=== PATIENT | male | born 1955 | race African-American/Black ===

== ENCOUNTER 2018-10-19 11:02 | Inpatient (IN) | payer MEDICAID ==
[~2018-10-19] VITALS: Ht 172.7 cm; Wt 93.4 kg
[2018-10-19 12:00] LABS: BASOPHILS % 0.5 % (0.0-2.0); EOSINOPHILS % 0.6 % (0.0-5.0); HEMATOCRIT. 42.5 % (42.0-52.0); HEMOGLOBIN. 14.7 g/dL (14.0-18.0); LYMPHOCYTES % 45.3 % (20.0-50.0); MEAN CORPUSCULAR HEMOGLOBIN 29.6 pg (28.0-32.0); MEAN CORPUSCULAR VOLUME 85.5 fL (80.0-94.0); MEAN PLATELET VOLUME 9.6 fl (7.4-10.4); MONOCYTES % 10.7 % (2.0-8.0); NEUTROPHILS % 42.9 % (40.0-76.0); PLATELET 194 x1000/uL (130-400); RED BLOOD CELL COUNT 4.97 mill/uL (4.7-6.1); RED CELL DISTRIBUTION WIDTH 14.7 % (11.6-14.6)
[2018-10-19 12:06] LABS: CHLORIDE 102 mEq/L (98-107)
[2018-10-19 12:12] LABS: ETHANOL BLOOD < 10 mg/dL
[2018-10-19] MEDS ORDERED: CLONIDINE 0.1MG TABLET PO ONE (13:15)
[2018-10-19 16:26] LABS: CLARITY URINE CLEAR (CLEAR); COLOR URINE YELLOW (YELLOW); KETONES URINE NEGATIVE (NEGATIVE); LEUKOCYTE ESTERASE URINE NEGATIVE (NEGATIVE); NITRITE URINE NEGATIVE (NEGATIVE); OCCULT BLOOD URINE NEGATIVE (NEGATIVE); PH URINE 6.5 (4.5-8.0); PROTEIN URINE 2+ (NEGATIVE); SPECIFIC GRAVITY URINE 1.019 (1.005-1.030)
[2018-10-19 16:41] LABS: *AMPHETAMINES SCREEN URINE NEGATIVE (NEGATIVE); *BARBITURATES SCREEN URINE NEGATIVE (NEGATIVE); *BENZODIAZEPINES SCREEN URINE NEGATIVE (NEGATIVE); *COCAINE SCREEN URINE NEGATIVE (NEGATIVE); CANNABINOID URINE SCREEN NEGATIVE (NEGATIVE); METHADONE URINE SCREEN NEGATIVE (NEGATIVE); OPIATES URINE SCREEN NEGATIVE (NEGATIVE); PHENCYCLIDINE URINE SCREEN NEGATIVE (NEGATIVE)
[2018-10-19] MEDS ORDERED: METF-416 PO (21:16)
[2018-10-19] MEDS ORDERED: GLIP10TA10 PO (21:17)
[2018-10-19] MEDS ORDERED: METO25TA6 PO (21:18)
[2018-10-19] MEDS ORDERED: CLON0.1T PO (21:19)
[2018-10-19] MEDS ORDERED: HYDR25TA PO (21:20)
[2018-10-19] MEDS ORDERED: LOSA100T14 PO (21:21)
[2018-10-19] MEDS ORDERED: ATOR40TA70 PO (21:21)
[2018-10-19] MEDS ORDERED: HYDR-4135 PO (21:22)
[2018-10-19 22:00] VITALS: BP 195/111
[2018-10-19 22:15] VITALS: BP 195/111
[2018-10-20] VITALS (10 sets, daily range): BP systolic 159–193; BP diastolic 94–115
[2018-10-20] MEDS ORDERED: ONDANSETRON HCL 4MG/2ML INJ IV PRN (02:30)
[2018-10-20] MEDS ORDERED: ACETAMINOPHEN 325MG TABLET PO PRN (02:30)
[2018-10-20] MEDS ORDERED: DOCUSATE SODIUM 100MG CAPSULE PO PRN (02:30)
[2018-10-20] MEDS ORDERED: MAGNESIUM/ALUMINUM HYDROXIDE/SIMETHICONE 30ML UDC PO PRN (02:30)
[2018-10-20] MEDS ORDERED: IPRATROPIUM/ALBUTEROL 0.5-3(2.5)MG/3ML NEB INH PRN (02:30)
[2018-10-20] MEDS ORDERED: HYDROCODONE/ACETAMINOPHEN 5/325MG TABLET PO PRN (02:30)
[2018-10-20 07:14] LABS: BASOPHILS % 0.5 % (0.0-2.0); EOSINOPHILS % 1.1 % (0.0-5.0); HEMATOCRIT. 40.3 % (42.0-52.0); LYMPHOCYTES % 50.8 % (20.0-50.0); MEAN CORPUSCULAR HEMOGLOBIN 29.5 pg (28.0-32.0); MEAN CORPUSCULAR VOLUME 84.9 fL (80.0-94.0); MEAN PLATELET VOLUME 9.7 fl (7.4-10.4); NEUTROPHILS % 35.6 % (40.0-76.0); PLATELET 195 x1000/uL (130-400); RED BLOOD CELL COUNT 4.75 mill/uL (4.7-6.1); RED CELL DISTRIBUTION WIDTH 14.2 % (11.6-14.6)
[2018-10-20] MEDS ORDERED: DEXTROSE 50% WATER 50ML SYRINGE IV PRN (07:45)
[2018-10-20] MEDS: BLOOD SUGAR DIAGNOSTIC STRIP TEST SCH ×4 (07:49→20:37)
[2018-10-20] MEDS: CLOPIDOGREL 75MG TABLET PO SCH (08:50)
[2018-10-20] MEDS: CLONIDINE 0.1MG TABLET PO PRN ×2 (08:51→20:57)
[2018-10-20] MEDS: INSULIN LISPRO 100 UNITS/ML SUBCUT SCH ×4 (08:53→20:56)
[2018-10-20] MEDS ORDERED: ASPIRIN 325MG EC TABLET PO SCH (09:00)
[2018-10-20] MEDS ORDERED: PNEUMOCOCCAL 23-VAL P-SAC VAC 0.5 ML IM ONE (12:00)
[2018-10-20 16:21] LABS: CHLORIDE 104 mEq/L (98-107)
[2018-10-20 16:28] LABS: LDL CHOLESTEROL 79 mg/dL (5-100)
[2018-10-20 16:30] LABS: CREATINE KINASE 128 IU/L (39-308); HDL CHOLESTEROL 35 mg/dL (40-59)
[2018-10-20 16:31] LABS: CREATINE KINASE MB FRACTION < 1.0 ng/mL (0.5-3.6)
[2018-10-20 16:34] LABS: T4 FREE 0.96 ng/dL (0.76-1.46)
[2018-10-20] MEDS: AMLODIPINE 5MG TABLET PO SCH (18:03)
[2018-10-20 19:04] LABS: CREATINE KINASE 137 IU/L (39-308)
[2018-10-20 19:05] LABS: CREATINE KINASE MB FRACTION < 1.0 ng/mL (0.5-3.6)
[2018-10-20] MEDS: ATORVASTATIN CALCIUM 20MG TABLET PO SCH (20:55)
[2018-10-20] MEDS ORDERED: POTASSIUM CHLORIDE 20MEQ TABLET SR PO SCH (22:34)
[2018-10-21] VITALS (8 sets, daily range): BP systolic 150–170; BP diastolic 87–115
[2018-10-21] MEDS: CLONIDINE 0.1MG TABLET PO PRN ×3 (05:59→21:01)
[2018-10-21] MEDS: BLOOD SUGAR DIAGNOSTIC STRIP TEST SCH ×4 (07:30→20:54)
[2018-10-21 07:44] LABS: BASOPHILS % 0.7 % (0.0-2.0); EOSINOPHILS % 1.1 % (0.0-5.0); HEMATOCRIT. 40.8 % (42.0-52.0); HEMOGLOBIN. 14.3 g/dL (14.0-18.0); LYMPHOCYTES % 51.5 % (20.0-50.0); MEAN CORPUSCULAR HEMOGLOBIN 29.8 pg (28.0-32.0); MEAN PLATELET VOLUME 9.5 fl (7.4-10.4); MONOCYTES % 11.1 % (2.0-8.0); NEUTROPHILS % 35.6 % (40.0-76.0); PLATELET 197 x1000/uL (130-400); RED CELL DISTRIBUTION WIDTH 14.2 % (11.6-14.6)
[2018-10-21] MEDS: INSULIN LISPRO 100 UNITS/ML SUBCUT SCH ×4 (08:36→20:58)
[2018-10-21] MEDS: AMLODIPINE 5MG TABLET PO SCH ×2 (09:21→18:21)
[2018-10-21] MEDS: CLOPIDOGREL 75MG TABLET PO SCH (09:21)
[2018-10-21] MEDS ORDERED: INSULIN GLARGINE UD 100 UNITS/ML SYR SUBCUT NR (14:30)
[2018-10-21 18:29] LABS: VITAMIN B12 SERUM 1437 pg/mL (211-911)
[2018-10-21 18:36] LABS: FOLIC ACID (FOLATE) SERUM > 20.00 ng/mL (>5.38)
[2018-10-21] MEDS: ATORVASTATIN CALCIUM 20MG TABLET PO SCH (20:52)
[2018-10-21] MEDS: INSULIN GLARGINE UD 100 UNITS/ML SYR SUBCUT SCH (20:59)
[2018-10-22] VITALS (12 sets, daily range): BP systolic 143–183; BP diastolic 90–118
[2018-10-22 06:04] LABS: BASOPHILS % 0.4 % (0.0-2.0); EOSINOPHILS % 1.4 % (0.0-5.0); HEMATOCRIT. 40.1 % (42.0-52.0); HEMOGLOBIN. 13.8 g/dL (14.0-18.0); LYMPHOCYTES % 54.1 % (20.0-50.0); MEAN CORPUSCULAR HEMOGLOBIN 29.8 pg (28.0-32.0); MEAN CORPUSCULAR VOLUME 86.1 fL (80.0-94.0); MEAN PLATELET VOLUME 9.7 fl (7.4-10.4); MONOCYTES % 13.3 % (2.0-8.0); NEUTROPHILS % 30.8 % (40.0-76.0); PLATELET 195 x1000/uL (130-400); RED BLOOD CELL COUNT 4.65 mill/uL (4.7-6.1); RED CELL DISTRIBUTION WIDTH 14.4 % (11.6-14.6)
[2018-10-22] MEDS: BLOOD SUGAR DIAGNOSTIC STRIP TEST SCH ×4 (08:21→21:09)
[2018-10-22] MEDS: CLOPIDOGREL 75MG TABLET PO SCH (08:27)
[2018-10-22] MEDS: AMLODIPINE 5MG TABLET PO SCH (08:27)
[2018-10-22] MEDS: INSULIN LISPRO 100 UNITS/ML SUBCUT SCH ×4 (08:41→21:10)
[2018-10-22] MEDS ORDERED: AMLODIPINE 5MG TABLET PO ONE (10:00)
[2018-10-22] MEDS ORDERED: AMLODIPINE 5MG TABLET PO SCH (10:15)
[2018-10-22] MEDS: INSULIN GLARGINE UD 100 UNITS/ML SYR SUBCUT SCH ×2 (10:49→21:32)
[2018-10-22] MEDS: CLONIDINE 0.1MG TABLET PO PRN ×2 (11:48→18:09)
[2018-10-22] MEDS ORDERED: HYDRALAZINE 20MG/ML VIAL IV SCH (13:45)
[2018-10-22] MEDS: HYDRALAZINE HCL 10MG TABLET PO SCH (21:08)
[2018-10-22] MEDS: AMLODIPINE 10MG TABLET PO SCH (21:08)
[2018-10-22] MEDS: ATORVASTATIN CALCIUM 20MG TABLET PO SCH (21:09)
[2018-10-23] VITALS (7 sets, daily range): BP systolic 141–177; BP diastolic 88–109
[2018-10-23] MEDS: HYDRALAZINE HCL 10MG TABLET PO SCH (05:05)
[2018-10-23 07:09] LABS: BASOPHILS % 0.5 % (0.0-2.0); EOSINOPHILS % 1.4 % (0.0-5.0); HEMATOCRIT. 42.8 % (42.0-52.0); HEMOGLOBIN. 14.6 g/dL (14.0-18.0); MEAN CORPUSCULAR HEMOGLOBIN 29.3 pg (28.0-32.0); MEAN CORPUSCULAR VOLUME 85.6 fL (80.0-94.0); MEAN PLATELET VOLUME 9.4 fl (7.4-10.4); MONOCYTES % 11.7 % (2.0-8.0); NEUTROPHILS % 38.4 % (40.0-76.0); PLATELET 204 x1000/uL (130-400); RED CELL DISTRIBUTION WIDTH 14.1 % (11.6-14.6)
[2018-10-23] MEDS: BLOOD SUGAR DIAGNOSTIC STRIP TEST SCH ×2 (08:12→12:06)
[2018-10-23] MEDS: INSULIN LISPRO 100 UNITS/ML SUBCUT SCH ×2 (08:49→12:17)
[2018-10-23] MEDS: CLONIDINE 0.1MG TABLET PO PRN (08:50)
[2018-10-23] MEDS: CLOPIDOGREL 75MG TABLET PO SCH (08:50)
[2018-10-23] MEDS: AMLODIPINE 10MG TABLET PO SCH (08:51)
[2018-10-23] MEDS: INSULIN GLARGINE UD 100 UNITS/ML SYR SUBCUT SCH (10:42)
[2018-10-23] MEDS ORDERED: POTASSIUM CHLORIDE 20MEQ TABLET SR PO NR (11:41)
[2018-10-23] MEDS ORDERED: AMLO10TA80 PO (11:43)
[2018-10-23] MEDS ORDERED: LANTUSUD SUBCUT (11:43)
[2018-10-23] MEDS ORDERED: HYDR-4134 MT (11:43)
[2018-10-23] MEDS ORDERED: INSU100V3 SUBCUT (11:43)
[2018-10-23] MEDS ORDERED: CLOP75TA16 PO (11:45)
[2018-10-23] MEDS ORDERED: HYDRALAZINE HCL 25MG TABLET PO SCH (14:00)
== END 2018-10-23 15:45 | disposition home or self-care (01) | DRG 45 ==
LOC: ER 12:17 → 7WST 13:25 → EDBEDREQTM 13:31 → EDBEDREQ 13:31 → EDBEDREQTM 14:00 → EDBEDREQ 14:00 → ENRESERV 19:38 → 7WST 20:30 → 5EST 10-20 09:16
PROVIDERS: ADMIT Internal Medicine; ATTEND Internal Medicine
DX: I63.9 Cerebral infarction, unspecified (principal); E11.22 Type 2 diabetes mellitus with diabetic chronic kidney disease; I13.10 Hypertensive heart and chronic kidney disease without heart failure, with stage 1 through stage 4 chronic kidney disease, or unspecified chronic kidney disease; E78.00 Pure hypercholesterolemia, unspecified; E78.5 Hyperlipidemia, unspecified; H53.2 Diplopia; N18.9 Chronic kidney disease, unspecified; Z79.02 Long term (current) use of antithrombotics/antiplatelets; Z79.899 Other long term (current) drug therapy; Z82.3 Family history of stroke; Z91.14 Patient's other noncompliance with medication regimen; Z79.84 Long term (current) use of oral hypoglycemic drugs
CPT/HCPCS: 36415; 70544; 70551; 80048; 80061; 80305; 82550; 82553; 82607; 82746; 82962; 83036; 83735; 84439; 84443; 84481; 84484; 90732; 92610; 93005; 93306; 93880; 97116; 97162; 97166; 99285; G0482; J0360; J1815